=== PATIENT | female | born 1960 | race Caucasian/White ===

== ENCOUNTER → 2023-09-11 08:43 | Outpatient (REF) | payer BC, SELFPAY | LOC: CLAB 08:43 | PROVIDERS: ATTENDING PHYSICIAN Specialist | DX: N39.0 Urinary tract infection, site not specified (principal) | CPT/HCPCS: 87071; 87086; 87186 ==

== ENCOUNTER → 2023-12-02 09:23 | Outpatient (REF) | payer BC, SELFPAY | LOC: CLAB 09:23 | PROVIDERS: ATTENDING PHYSICIAN Specialist | DX: N39.0 Urinary tract infection, site not specified (principal) | CPT/HCPCS: 87086; 87088; 87186 ==

== ENCOUNTER → 2023-12-17 09:24 | Outpatient (REF) | payer BC, SELFPAY | LOC: CLAB 09:24 | PROVIDERS: ATTENDING PHYSICIAN Specialist | DX: N39.0 Urinary tract infection, site not specified (principal) | CPT/HCPCS: 87086 ==

== ENCOUNTER 2024-06-12 22:33 | Emergency (ER) | payer BC, SELFPAY ==
[2024-06-12 22:35] VITALS: BP 154/89
[2024-06-12] MEDS: ADACEL 0.5 ML IM (23:11)
--- NOTE | 2024-06-12 23:54 | ED.GENMED ---
History of Present Illness
General
Chief Complaint: Fall
Source: patient and spouse
Exam Limitations: none
Time Seen by Provider: 06/12/24 22:39
Nursing documentation reviewed up to this point in time: agreed with
History of Present Illness
History of Present Illness:
64-year-old female with history as documented presents to the ER for evaluation of headache after a fall and head trauma. Patient tripped on a curb yesterday and fell forward, hit her knee on the ground, struck her chin and right forehead. Did not
lose consciousness. Was able to get up and ambulatory afterwards but since then has had headache and mild nausea and so came to the ER to be evaluated. She does have minor laceration over right eyebrow which was repaired with Steri-Strips
yesterday at home. She is unsure of her last tetanus. She denies any other serious injuries that she says she has some soreness in her right shoulder and in her left knee but no limitation in range of motion. She denies any significant neck pain
or any other injuries. She denies being on blood thinners.
Past History
Past History
ED Past Medical History: Arrthythmia (pt states 'atrial tachycardia' on Metoprolol earlier this year, stopped Metoprolol few months ago due to dizziness)
Social History
Tobacco: Former smoker
Alcohol: Occasional
Personal:
Living: with family
Employment: Employed
Review of Systems
Review of Systems
All Other Systems: ROS reviewed and negative except as documented in HPI and ROS
ABD/GI: Reports nausea; Denies vomiting
Musculoskeletal: Reports joint pain (Soreness in the right shoulder and left knee); Denies joint swelling, neck pain or back pain
Neurological: Reports headache; Denies weakness or numbness
Phy Exam
Physical Exam
Physical Exam:
General: Awake, alert, oriented x3; no acute distress
Head: Normocephalic, minor laceration with Steri-Strips in place over the right eyebrow
Eyes: Conjunctiva normal, pupils equal round and reactive to light bilaterally
Throat: Airway intact, handling secretions, tongue atraumatic
Neck: Trachea midline, no midline cervical tenderness
Lungs: Breathing comfortably no distress
Heart: Regular rate
Neuro: No gross deficits
Extremities: Atraumatic, moving all extremities through comfortable range of motion
Scores
Heart Failure Risk
Heart Failure Risk Score: Not Applicable
Heart Score for Chest Pain Patients
STEMI patient?: Not applicable
Withdrawal Assessment of Alcohol
Withdrawal Assessment Completed?: Not applicable
Course
Orders/Labs/Results
Orders:
Orders
06/12/24 22:39
CT Cervical Spine W/o Iv Contr Urgent
Comment:
Reason For Exam: fall with headstrike, KERR, nausea
CT Facial Bones W/o Iv Contras Urgent
Comment:
Reason For Exam: fall with headstrike, KERR, nausea
CT Head W/o Iv Contrast Urgent
Comment:
Reason For Exam: fall with headstrike, KERR, nausea
06/12/24 22:40
Tetanus/Diphth/Acelpertussis [Adacel] 0.5 ml IM .ONCE ONE
06/13/24 00:15
Ketorolac [Toradol] 30 mg IM NOW STA
Vital Signs
Initial and Last Documented VS:
Initial Vital Signs
Temp Pulse Resp BP Pulse Ox
36.4 C 81 18 154/89 98
06/12/24 22:35 06/12/24 22:35 06/12/24 22:35 06/12/24 22:35 06/12/24 22:35
Last Documented Vital Signs
Temp Pulse Resp BP Pulse Ox
36.4 C 81 18 154/89 98
06/12/24 22:35 06/12/24 22:35 06/12/24 22:35 06/12/24 22:35 06/12/24 22:35
MDM/Problems Addressed
Differential Diagnosis Includes:
Concussion, subdural, subarachnoid, cervical spine injury, orbital/facial fracture
MDM/Problems Addressed:
64-year-old female presents for evaluation of headache and nausea after fall with head strike yesterday. She also has minor laceration repaired with Steri-Strips. She is not on any blood thinners. Hypertensive otherwise normal vitals. Exam as
above. Sent for CT head, cervical spine, facial bones. Update tetanus. Toradol for pain. Reassess after the above.
CT head, cervical spine, facial bones reviewed: No acute pathology. Suspect likely mild concussion. Plan to discharge, instructions for supportive care. All questions answered.
Acute Exacerbation and/or Progression of Chronic Illness:
Hypertensive with no signs or symptoms of hypertensive emergency�no indication for emergent antihypertensive treatment
Acute Exacerbation and/or Progression of Chronic Illness: HTN
*Radiology
Radiology exam reviewed: preliminary read by ED provider and radiology read reviewed
*Pulse Oximetry
Patient hypoxic: no
*Critical Care Note
Total Time (30-74mins, 75-104mins- exclusive of procedures): Not Applicable
Data Reviewed
Review of Other/Old Records Reveals: Labs and Records
Source: patient and spouse
ED Attending Note
-
Portions of this chart may have been created with voice recognition software.� Occasional wrong word or��sound alike� substitutions may have occurred due to the inherent limitations of voice recognition software.
Discharge Plan
Departure
Patient Disposition: Home (Routine Discharge)
Date of Disposition: 06/13/24
Time of Disposition: 00:15
Patient with high blood pressure during this ER visit?: Yes
Discharge Problem:
Concussion, Eyebrow laceration
Instructions: Concussion, Adult (DC), Wound Care (DC)
Prescriptions:
No Action
ibuprofen 200 MG capsule
400 mg PO DAILY
cephalexin 500 MG capsule
500 mg PO TID
famotidine 20 MG tablet
20 mg PO BID Qty: 28 0RF
Rx Instructions:
Take 20 mg twice a day for 14 days
ascorbic acid (vitamin C) [Vitamin C] 500 MG tablet
1,000 mg PO BID Qty: 56 0RF
Rx Instructions:
Take 1,000 mg twice a day for 14 days
aspirin 81 MG tablet,chewable
81 mg PO DAILY Qty: 14 0RF
Rx Instructions:
Take 81 mg daily for 14 days
zinc sulfate 220 MG capsule
220 mg PO DAILY Qty: 14 0RF
Rx Instructions:
Take 220 mg daily for 14 days
cholecalciferol (vitamin D3) 1,000 UNITS tablet
2,000 units PO DAILY Qty: 28 0RF
Rx Instructions:
Take 2,000 units daily for 14 days
melatonin 5 MG tablet
5 mg PO HS Qty: 14 0RF
Rx Instructions:
Take 5 mg daily at bedtime for 14 days
Referrals:
UNKNOWN - PT DOES,NOT KNOW [Family Provider] -
Activity Restrictions/Additional Instructions:
Thank you for visiting the Emergency Department at [facility].
1. Please schedule a follow up appointment as directed. Call first thing tomorrow morning to make an appointment.
2. If indicated, please take your medications as instructed and indicated on discharge paperwork.
3. If any of your symptoms do not improve, or persist, or become more severe within 6-12 hours, please return to the emergency department for further care.
4. Please return to the emergency department if you develop a headache, neck pain/stiffness, fever greater than 100.4F, chest pain, shortness of breath, persistent nausea, vomiting, slurred speech, difficulty walking, numbness/tingling, weakness,
signs of infection or any other symptoms that are worrisome to you.
Please call [phone] if you have any questions.
Interventions
Interventions:
*Risk Screen - Suicide Last Done: 06/12/24 23:40
*General Assessment Last Done: 06/12/24 23:40
*Neglect/Abuse Screening Last Done: 06/12/24 23:40
ED- Fall Risk Assessment Last Done: 06/12/24 23:41
ED-Musculoskeletal Assessment Last Done: 06/12/24 23:40
ED- Neurological Assessment Last Done: 06/12/24 23:40
ED-Skin Assessment Last Done: 06/12/24 23:40
Discharge Date and Time
Print Language: WELSH
[2024-06-13] MEDS: TORADOL 30 MG IM (00:23)
[2024-06-13 00:29] VITALS: BP 107/54
== END 2024-06-13 00:30 | disposition home or self-care (01) ==
LOC: EMR 22:33
PROVIDERS: EMERGENCY PHYSICIAN Emergency Medicine
DX: S06.0X0A Concussion without loss of consciousness, initial encounter (principal); S01.111A Laceration without foreign body of right eyelid and periocular area, initial encounter; W01.0XXA Fall on same level from slipping, tripping and stumbling without subsequent striking against object, initial encounter; Z87.891 Personal history of nicotine dependence; I10 Essential (primary) hypertension; Z23 Encounter for immunization
CPT/HCPCS: 96372; 90471; 99284; 70450; 70486; 72125; 90715

== ENCOUNTER → 2024-07-07 15:07 | Outpatient (REF) | payer BC, SELFPAY | LOC: CLAB 15:07 | PROVIDERS: ATTENDING PHYSICIAN Specialist | DX: N39.0 Urinary tract infection, site not specified (principal) | CPT/HCPCS: 87077; 87086 ==

== ENCOUNTER → 2024-12-18 08:26 | Outpatient (REF) | payer BC, SELFPAY | LOC: CLAB 08:26 | PROVIDERS: ATTENDING PHYSICIAN Specialist | DX: N39.0 Urinary tract infection, site not specified (principal) | CPT/HCPCS: 87077; 87086 ==

== ENCOUNTER → 2025-05-31 10:25 | Outpatient (REF) | payer BC, SELFPAY | LOC: REG 10:25 | PROVIDERS: ATTENDING PHYSICIAN Specialist | DX: N39.0 Urinary tract infection, site not specified (principal) | CPT/HCPCS: 87077; 87086; 87186 ==

== ENCOUNTER → 2025-06-14 18:02 | Outpatient (REF) | payer BC, SELFPAY | LOC: CLAB 18:02 | PROVIDERS: ATTENDING PHYSICIAN Specialist | DX: N39.0 Urinary tract infection, site not specified (principal) | CPT/HCPCS: 87077; 87086 ==